=== PATIENT | female | born 1980 | race Caucasian/White ===

== ENCOUNTER 2016-03-25 04:42 | Emergency (ER) | payer BC ==
[~2016-03-25] VITALS: Ht 165.1 cm; Wt 103.3 kg
[~2016-03-25 04:42] MED LIST: BUPROPION XL300 MG PO; KEFLEX500 MG PO; NORCO 5/3251 TABLET PO; TRI-ESTARYLLA1 EACH PO
[2016-03-25 05:32] LABS: CHLORIDE 108 mEq/L (99-109); POTASSIUM 4.3 mEq/L (3.7-5.4); SODIUM 137 mEq/L (136-147)
[2016-03-25 05:34] LABS: GLUCOSE 120 mg/dL (70-99); HEMATOCRIT 35.5 % (36.0-46.0); MCH 30.1 PG (29.0-34.0); MCHC 35.5 G/DL (30.0-36.0); MCV 84.9 FL (83-99); MEAN PLAT.VOLUME 10.4 uM^3 (9.5-12.4); PLATELET COUNT 372 K/uL (156-360); RBC DIS.WIDTH-CV 11.9 % (11.8-14.6); RED BLOOD COUNT 4.18 M/uL (3.80-5.20); WHITE BLOOD COUNT 12.7 K/uL (4.1-10.2)
[2016-03-25 05:36] LABS: ANION GAP 9 MEQ/L (2-14); TOTAL BILIRUBIN 0.4 mg/dL (0.0-1.0)
[2016-03-25 05:38] LABS: ALKALINE PHOSPHATASE 52 IU/L (3-129); GFR ESTIMATE (CALCULATED) > 59 mL/min/
[2016-03-25 05:39] LABS: UREA NITROGEN (BUN) 11 mg/dL (9-23)
[2016-03-25 05:48] LABS: QUANTITATIVE HCG 5031.4 MIU/ML
[2016-03-25 09:21] VITALS: BP 116/66
[2016-03-25 09:28] LABS: ADD MIUA? YES; BILIRUBIN NEGATIVE; BLOOD LARGE; GLUCOSE (STRIP) NEGATIVE; KETONES >=80; LEUKOCYTES SMALL; NITRITE NEGATIVE; PH, URINE 6.5 (5-8); PROTEIN (STRIP) 30; SPECIFIC GRAVITY 1.023 (1.000-1.030); UROBILINOGEN 0.2 MG/DL (0.2-1.0)
[2016-03-25 09:29] LABS: COLOR RED ((YELLOW))
[2016-03-25 09:54] LABS: EPITHELIAL CELLS 1+; RED BLOOD CELLS TNTC /HPF (0-5)
[2016-03-25 09:55] LABS: BACTERIA NONE SEEN; CASTS NONE SEEN /LPF; CRYSTALS NONE SEEN; MUCUS NONE SEEN; UCUL ADDED? NO; WHITE BLOOD CELLS 0-5 /HPF (0-5)
== END 2016-03-25 09:22 | disposition home or self-care (01) ==
LOC: EME 04:42
DX: O02.1 Missed abortion (principal); Z3A.00 Weeks of gestation of pregnancy not specified
CPT/HCPCS: 76801; 80053; 81003; 84702; 85027; 86900; 86901; 99281; 99284

== ENCOUNTER 2016-04-11 09:08 | Day surgery (SDC) | payer BC ==
[~2016-04-11] VITALS: Ht 165.1 cm; Wt 98.9 kg
[2016-04-11 09:40] VITALS: BP 121/70
[2016-04-11] MEDS ORDERED: HYDROCODON-ACE1 EAC7 PO (11:31)
[2016-04-11] MEDS ORDERED: DOXYCYCLINE HY100 MG PO (11:31)
[2016-04-11 11:46] LABS: HEMATOCRIT 30.2 % (36.0-46.0); MCV 88.3 FL (83-99)
[2016-04-11 13:12] VITALS: BP 136/87
[2016-04-11 14:20] VITALS: BP 135/85
[2016-04-11 14:32] VITALS: BP 136/87
== END 2016-04-11 14:45 | disposition home or self-care (01) ==
LOC: SDC 09:08
PROVIDERS: Obstetrics & Gynecology
PROC: 10D17ZZ Extraction of Products of Conception, Retained, Via Natural or Artificial Opening (ICD-10-PCS; principal; 2016-04-11)
DX: O03.4 Incomplete spontaneous abortion without complication (principal); K21.9 Gastro-esophageal reflux disease without esophagitis; I49.9 Cardiac arrhythmia, unspecified
CPT/HCPCS: 85014; 85018; 86850; 86900; 86901; 88305; C1726; J0131; J1100; J1170; J1885; J2210; J2250; J2405; J3010